=== PATIENT | male | born 2000 | race Two or more races ===

== ENCOUNTER 2024-09-29 15:56 | Emergency (ER) | payer MEDICAID, SELFPAY ==
--- NOTE | 2024-09-29 16:01 | EKG_ITS ---
[facility] Test Date: 2024-09-29 Pat Name: JUNG MCINTOSH Department: Room: - Gender: Male [employer] Attendant: : [id number] Requested By: Srinivasan Hernandez Order Number: [id number] Reading MD: Srinivasan Hernandez Measurements Intervals [place] Rate: 77 P: 67 KS: 174 QRS: 92 QRSD: 94 T: 60 QT: 348 QTc: 395 Interpretive Statements SINUS RHYTHM WITH SINUS ARRHYTHMIA BORDERLINE RIGHT AXIS DEVIATION [QRS AXIS > 90] No previous ECG available for comparison /[id number]
[2024-09-29 16:14] VITALS: BP 159/84; BP 162/93; PULSE 82; RESP 18; TEMP 37; O2SAT 99; BMI 21.3
--- NOTE | 2024-09-29 16:21 | XR_ITS ---
Examination: PA lateral chest 2 views Technique: Upright PA lateral chest 2 views Exam date and time: September 29, 2024 1639 hrs. Indications: Chest pain onset dizziness shortness of breath today Findings: Normal heart size Lungs are clear. The osseous structures are intact Impression: No active disease
--- NOTE | 2024-09-29 16:21 | XR_ITS ---
Examination: CT brain head without contrast. 2-D sagittal coronal reconstructions Date and time of exam:September 29, 2024 1914 hrs. Indications: Syncopal episode today with headache CTDI: vol (mGy):44.7 DLP: (mGycm):900 Technique: Multiple CT axial sections of the brain have been obtained, 5 mm slice thickness. Contrast has not been administered. 2-D sagittal, coronal reconstructions have been obtained Low dose protocols were performed. One or more of the following dose reduction techniques were used; automated exposure control, adjustment of the mA and/or KV according to patient size, use of iterative reconstruction technique. Findings: No significant ventricular enlargement. Intra-axial or extra-axial hemorrhage density is not seen. No mass effect or midline shift Basal cisterns are not remarkable. Fourth ventricle is midline. Cranial vault intact. Significant left maxillary sinus disease Impression: Negative for acute hemorrhage, mass effect or midline shift Advise clinical correlation and follow-up accordingly
--- NOTE | 2024-09-29 16:22 | PD.EDRME ---
Rapid Medical Screening Exam E Arrival date/time: 09/29/24 15:56 23-year-old male presents to emergency department today complains of episode of dizziness. Chief Complaint: Dizziness Time Seen by Provider: 09/29/24 16:08 Vital signs: Vital Signs Temperature 98.6 F 09/29/24 16:14 Pulse Rate 82 09/29/24 16:14 Respiratory Rate 18 09/29/24 16:14 Blood Pressure 162/93 H 09/29/24 16:14 Pulse Oximetry (%) 99 09/29/24 16:14 Oxygen Delivery Method Room Air 09/29/24 16:14
[2024-09-29 16:57] LABS: Basophils % (Auto) 0 % (0-2.5); Eosinophils # (Auto) 0.1 Thou/mm3 (0.0-0.5); Eosinophils % (Auto) 2 % (0-10); Hemoglobin 15.1 g/dL (13.5-16.0); Immature Granulocytes % (Auto) 0 % (0-0); Immature Granulocytes Auto 0.02 Thou/mm3 (0.00-0.00); Lymphocytes # (Auto) 1.4 Thou/mm3 (1.0-4.8); Lymphocytes % (Auto) 19 % (10-50); Mean Corpuscular HGB Conc 35.1 g/dl (31.0-37.0); Mean Corpuscular Hemoglobin 31.3 pg (25.0-35.0); Mean Corpuscular Volume 89 fL (80-100); Monocytes # (Auto) 0.6 Thou/mm3 (0.0-0.8); Monocytes % (Auto) 8 % (0-12); Neutrophils # (Auto) 5.5 Thou/mm3 (1.8-7.7); Neutrophils % (Auto) 71 % (37-80); Nucleated Red Blood Cell % 0 /100 WBC (0); Platelet Count 180 Thou/mm3 (140-440); RDW Standard Deviation 39.7 fL (35.1-43.9); Red Blood Count 4.82 Miln/mm3 (4.50-5.90); White Blood Count 7.7 Thou/mm3 (3.8-10.6)
[2024-09-29 17:19] LABS: Alanine Aminotransferase 13 U/L (10-49); Albumin/Globulin Ratio 1.9 (1.2-2.2); Alkaline Phosphatase 95 U/L (46-116); Anion Gap 5 (7-16); Aspartate Amino Transferase 23 U/L (0-34); BUN/Creatinine Ratio 10 Ratio (12-20); Bilirubin,Total 1.2 mg/dL (0.3-1.2); Blood Urea Nitrogen 10 mg/dL (9-23); Calcium 10.6 mg/dL (8.3-10.6); Calcium (Corrected) 10.6 mg/dL (8.5-10.1); Carbon Dioxide 29.6 mMol/L (20.0-31.0); Chloride 100 mMol/L (98-107); Estimated Creatinine Clearance 112.8 mL/min (>60); Globulin 2.6 gm/dL (2.3-3.5); Glucose 88 mg/dL (74-106); Osmolality,Calculated 268 (275-295); Potassium 4.1 mMol/L (3.4-5.1); Sodium 135 mMol/L (136-145); Total Protein 7.6 gm/dL (5.7-8.2); Troponin I < 0.020 ng/mL (0.0-0.045); eGFR > 60 See Note
[2024-09-29 19:30] VITALS: BP 148/78; PULSE 61; RESP 18; TEMP 36.9; O2SAT 98
--- NOTE | 2024-09-29 21:45 | PD.EDDIZZY ---
ED Dizzyness RME/HPI General Chief Complaint: Dizziness Stated Complaint: Dizzy Time Seen by Provider: 09/29/24 16:08 Arrival date/time: 09/29/24 15:56 This is a 23-year-old male that comes in with complaints of panic episode that started prior to arrival. Patient states that he was at work and started to feel dizzy and lightheaded. Patient states that he has had panic attacks before. Patient was also saying that his chest felt tight. Patient denies any symptoms at this time. Patient reports drinking every other day about 7-8 beers. Patient denies any other drug use. RME / HPI RME / HPI Narrative: 09/29/24 15:56 23-year-old male presents to emergency department today complains of episode of dizziness. Related Data Home Medications ?Medication ?Instructions ?Recorded ?Confirmed No Known Home Medications 01/19/23 01/19/23 Allergies Allergy/AdvReac Type Severity Reaction Status Date / Time No Known Allergies Allergy Verified 01/19/23 02:38 Review of Systems Review of Systems Systems Reviewed: All systems reviewed, normal except as documented Past Medical History Social History SMOKING STATUS: Never smoker ED Exam General General appearance: Present alert and in no apparent distress Head Head exam: Present atraumatic Eye Eye exam: Present normal appearance, PERRL and EOMI ENT ENT exam: Present normal exam, normal oropharynx and mucous membranes moist Neck Neck exam: Present normal inspection, full ROM and trachea midline Chest Chest inspection: Present normal inspection and symmetric chest wall rise Respiratory Respiratory exam: Present normal lung sounds bilaterally Cardiovascular Cardiovascular exam: Present regular rate, normal rhythm and normal heart sounds Abdominal Exam Abdominal exam: Present soft Extremities Exam Extremities exam: Present normal inspection and full ROM Back Exam Back exam: Present normal inspection and full ROM Neurological Exam Neurological exam: Present alert, oriented X3 and CN II-XII intact Psychiatric Psychiatric exam: Present normal affect and normal mood Skin Skin exam: Present warm, dry, intact and normal color Course Quality Measures none Orders Category Date Time Status EKG (ED ONLY) *Do not use* NOW Care 09/29/24 16:[address] head/brain wo con Stat Exams 09/29/24 16:21 Completed EKG (ED Only) Stat Exams 09/29/24 16:01 Draft XR chest 2V Stat Exams 09/29/24 16:21 Completed CBC Stat Lab 09/29/24 16:39 Completed Comprehensive Metabolic Panel Stat Lab 09/29/24 16:39 Completed Troponin I Stat Lab 09/29/24 16:39 Completed Vital Signs Vital signs: Vital Signs Temperature 98.6 F 09/29/24 16:14 Pulse Rate 82 09/29/24 16:14 Respiratory Rate 18 09/29/24 16:14 Blood Pressure 162/93 H 09/29/24 16:14 Pulse Oximetry (%) 99 09/29/24 16:14 Oxygen Delivery Method Room Air 09/29/24 16:14 Procedures -ED EKG Interpretation #1: Date of EK09/29/24 Time of EK:18 Rate: 77 Interpretation: Interpreted by me (Sinus rhythm) EKG Impression: No ectopy, Normal QRS and Normal intervals Dizziness MDM Narrative MDM Narrative:: Labs, x ray, ekg, and ct of head unremarkable. Patient denies going to school but states he has been working a lot. Patient states that he feels like he over thinks a lot of things. Patient reports panic attacks in the past and today's episode felt like this as well. Patient told to follow-up with primary provider in 1 to 2 days. Come back to the emergency room symptoms change or worsen. I explained to patient that it is likely that this is anxiety but it is important to follow-up with primary provider so they can do further testing if needed. Patient verbalized understanding. Patient feels comfortable going home at this time. CHest x ray: Findings: Normal heart size Lungs are clear. The osseous structures are intact Impression: No active disease ct head: Findings: No significant ventricular enlargement. Intra-axial or extra-axial hemorrhage density is not seen. No mass effect or midline shift Basal cisterns are not remarkable. Fourth ventricle is midline. Cranial vault intact. Significant left maxillary sinus disease Impression: Negative for acute hemorrhage, mass effect or midline shift Advise clinical correlation and follow-up accordingly Patient data External records reviewed:: [facility] previous records Clinical information provided by:: patient Social determinants that could affect healthcare access:: none Patient has the following chronic illnesses:: none How is presenting disease/condition affected by chronic disease/condition?: no chronic disease Evaluation data The following diagnostics were reviewed and interpreted by me:: lab results, radiology exam(s) and EKG tracing(s) Lab and/or radiology exams considered but not ordered:: none Interpretation Summary: see note Medications / Prescriptions Medications or Prescriptions considered but not ordered:: none Medication administrations:: none Consultations Consultation(s) initiated? (list below): No Diagnosis Most likely diagnosis given after review of the tests above:: anxiety Admission Indicated Admission indicated?: not indicated Admission Request Was there a request for admission?: No Disposition Plan Disposition Plan: Discharge Discharge Attestation Discharge Attestation: The patient and all family members were given an opportunity to ask questions and understood the discharge instructions. Discharge instructions specifically effects, indications for sooner follow up or return to the emergency department, and the expected course of current diagnosis. Patient condition: Stable Discharge Plan Plan Patient Disposition: HOME (Self Care) Patient condition on transfer: Stable Prescriptions/Referrals Prescriptions/Med Rec: No Action No Known Home Medications Referrals: Bc Araiza MD [Primary Care Provider] - In 1 week Problem List Clinical Impression: Anxiety Patient/Caregiver Discharge Instructions Discharge Activity: activity as tolerated Education Materials: ED Anxiety Reaction Additional Instructions: Follow-up with primary provider in 1 to 2 days. Come back to the emergency room if symptoms change or worsen Print Language: Faroese Stand Alone Forms: Danielle Award Info., Patient Portal Info Letter CHENCHO/MICHELLE Supervising Physician CHENCHO/MICHELLE Supervising Physician: renata
== END 2024-09-29 21:55 | disposition home or self-care (01) ==
PROVIDERS: Nurse Practitioner Primary Care; Emergency Provider Emergency Medicine; PCP Family Medicine
DX: F41.9 Anxiety disorder, unspecified (principal); R51.9 Headache, unspecified; R55 Syncope and collapse; R42 Dizziness and giddiness; R06.02 Shortness of breath; R07.9 Chest pain, unspecified; I49.8 Other specified cardiac arrhythmias
CPT/HCPCS: 36415; 70450; 71046; 80053; 84484; 85025; 93005; 99284